=== PATIENT | male | born 1975 | race Caucasian/White ===

== ENCOUNTER 2020-05-28 23:02 | Emergency (ER) | payer SELFPAY ==
[~2020-05-28] VITALS: Ht 160 cm; Wt 70.5 kg
[2020-05-29] MEDS ORDERED: FLEXERIL 1010 MG/TAB PO (00:54)
[2020-05-29 01:04] VITALS: BP 112/71; PULSE 81; TEMP 98.3
== END 2020-05-29 01:06 | disposition home or self-care (01) ==
LOC: COL.ER 23:02
DX: R09.1 Pleurisy (principal)
CPT/HCPCS: J1885; J2360